=== PATIENT | male | born 1955 | race Hispanic/Latino ===

== ENCOUNTER 2016-06-19 07:30 | Day surgery (SDC) | payer SELFPAY ==
--- NOTE | 2016-06-19 08:31 | Anesthesia Day of Surgery ---
Anesthesia Day of Surgery - Day of Surgery Patient Examined: Yes Patient H&P Reviewed: Yes Patient is NPO: Yes Beta Blockers: No Cardiac Clearance: No Pulmonary Clearance: No
--- NOTE | 2016-06-19 08:32 | Anesthesia Consultation ---
Anesthesia Consult and Med Hx Date of service: 06/19/16 - Airway Anesthetic Teeth Evaluation: Poor (remaining lower teth in poor condition/?? loose), Partials ROM Head & Neck: Adequate Mental/Hyoid Distance: Adequate Mallampati Class: Class II Intubation Access Assessment: Probably Good - Pulmonary Exam CTA: Yes (distant BS) - Cardiac Exam Cardiac Exam: RRR - Pre-Operative Health Status ASA Pre-Surgery Classification: ASA3 Proposed Anesthetic Plan: General - Pulmonary Hx Smoking: Yes (CIGARETTES 1/2 PPD X 43 YRS) COPD: Yes (? DX) Hx Sleep Apnea: No - Central Nervous System Hx Psychiatric Problems: No - Other Systems Hx Cancer: Yes (SKIN CA ON FACE 20+ YRS AGO) - Additional Comments Anesthesia Medical History Comments: cachetetic
[2016-06-19] MEDS ORDERED: ZOFRAN IV PRN (08:33)
[2016-06-19] MEDS ORDERED: NACL 0.9% 1000 ML 1,000 ML IV SCH (09:00)
[2016-06-19] MEDS ORDERED: VERSED IV NR (09:00)
[2016-06-19] MEDS ORDERED: PEPCID PO NR (09:00)
[2016-06-19] MEDS ORDERED: DIPRIVAN 10 MG/ML IV ONE ×2 (09:09→13:11)
[2016-06-19] MEDS ORDERED: DILAUDID ONE (09:10)
[2016-06-19] MEDS ORDERED: SUBLIMAZE ONE ×2 (10:48→11:41)
[2016-06-19] MEDS ORDERED: QUELICIN ONE (10:49)
[2016-06-19] MEDS ORDERED: ANCEF/STERILE WATER 2 GM/20 ML IV NR (11:00)
[2016-06-19] MEDS ORDERED: XYLOCAINE MPF 2% ONE (11:11)
[2016-06-19] MEDS ORDERED: ZEMURON IV ONE (11:11)
[2016-06-19] MEDS ORDERED: NACL 0.9% 1000 ML 1,000 ML ONE (11:31)
[2016-06-19] MEDS ORDERED: NACL 0.9% IR ONE (11:55)
[2016-06-19] MEDS ORDERED: ZOFRAN ONE (12:29)
[2016-06-19] MEDS ORDERED: DECADRON ONE (12:29)
[2016-06-19] MEDS ORDERED: NEOSTIGMINE ONE (12:40)
[2016-06-19] MEDS ORDERED: ROBINUL ONE ×2 (12:40)
--- NOTE | 2016-06-19 13:02 | Discharge Summary ---
Short Stay Discharge Plan Activity: no driving until cleared by PCP Diet: regular Wound: change dressing (daily), drain care as instructed Follow up with: PRIMARY CARE, [Primary Care Provider] - 7 Days GARY BARAKAT MD [Staff Physician] - 7 Days Prescriptions: HYDROcodone/APAP 5-325 [[place] 5/325] 1 each PO Q4HR PRN #40 tablet PRN Reason: Pain Prochlorperazine [Compazine] 10 mg PO Q6HR #30 tablet
[2016-06-19] MEDS ORDERED: NEO SYNEPHRINE/NS Syringe(OR USE) IV ONE (13:12)
--- NOTE | 2016-06-19 13:16 | Operative Report ---
Operative Report Operative Report: Date of operation: 06/19/2016. Preoperative diagnosis: 1. Large skin tumor left clavicular area. #2. Left axillary lymphadenopathy. 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 2. Metastatic left axillary lymphadenopathy. Operation: #1. Lawrence-Cut needle biopsy left axillary adenopathy. #2. Excision skin fungating carcinoma left clavicular area. #3. Left axillary lymph node dissection. Surgeon: Noman Glez MD. Findings: 60 years old male with a large fungating skin tumor in the left clavicular area and axillary adenopathy. Lawrence-Cut needle biopsy of the left axillary adenopathy showed carcinoma. At operation we found extensive lymphadenopathy in the left axilla. All this seem to be metastatic carcinoma. Procedure: Under general anesthesia the left chest wall in the left axilla were prepped and draped in the usual sterile manner. A Lawrence-Cut needle biopsy on the left proximal adenopathy was performed and sent to pathology for frozen section. Also a small piece of the fungating mass was cut off with #11 blade and sent to the pathologist also for frozen section. Then a skin incision was made around the fungating mass on normal skin. Dissection carried down to the subcutaneous tissue and then with the electrocautery we dissected the mass from the subcutaneous tissue and muscular fascia. Bleeders were electrocoagulated. All the bleeders were suture ligated with [id number] stitches of 3-0 Vicryl. The was done we waited for the frozen section to come back. Frozen section showed metastatic carcinoma to the lymph node so preparations for a left axillary lymph node dissection were made. A transverse incision in the skin of the axilla was done from the lateral edge of the left pectoralis muscle down to the anterior edge of the left latissimus dorsi muscle. Then by blunt and sharp dissection a left axillary lymph node dissection was performed. The long thoracic and thoracodorsal nerves were identified and kept from harms way. The dissection was completed the wound was irrigated with normal saline solution. Then the wound was covered with powder anticoagulant. A #15 John drain was put in place and brought out through a separate stab wound. Was fixed to the skin with a 2-0 silk suture. Then the wound was closed using interrupted stitches of 2-0 Vicryl for the subcutaneous tissue and the skin negative for approximated with skin marielle. The clavicular wound was left open and dressed with a moist fluffs more dry fluffs and a AVD pad. The axillary wound was dressed with gauze and tape. The patient was awakened, extubated and transferred to the recovery room in good condition. Estimated blood loss: 100 mL. Intravenous fluid replacement: Crystalloids. Condition: Stable. Specimens: #1. Fungating skin carcinoma left clavicular area. #2. Lymph nodes from left axillary lymph node dissection.
--- NOTE | 2016-06-19 13:20 | Post Anesthesia Evaluation ---
- Post Anesthesia Evaluation Patient Participated: Yes Airway Patent: Yes Stable Respiratory Function: Yes Nausea/Vomiting: No Temp > 96.8F: Yes Pain Manageable: Yes Adequeate Hydration: Yes Anesthesia Complications: No
[2016-06-19] MEDS: DILAUDID IV PRN ×2 (13:25→13:35)
[2016-06-19] MEDS: SUBLIMAZE IV PRN ×2 (14:55→15:05)
[2016-06-19] MEDS ORDERED: NORCO 5/325 PO PRN (15:00)
[2016-06-19 15:28] VITALS: BP 126/70
== END 2016-06-19 17:00 | disposition home or self-care (01) ==
LOC: OR 07:30
PROVIDERS: ATTEND Specialist
DX: C44.599 Other specified malignant neoplasm of skin of other part of trunk (principal); C77.3 Secondary and unspecified malignant neoplasm of axilla and upper limb lymph nodes; F17.210 Nicotine dependence, cigarettes, uncomplicated; J44.9 Chronic obstructive pulmonary disease, unspecified; I10 Essential (primary) hypertension; Z85.828 Personal history of other malignant neoplasm of skin; Z80.1 Family history of malignant neoplasm of trachea, bronchus and lung
CPT/HCPCS: 11606; 38525; 88304; 88307; 88331; 88341; 88342; J0330; J0690; J1100; J1170; J2250; J2370; J2405; J2704; J2710; J3010; J7030